=== PATIENT | female | born 1990 | race Caucasian/White ===

== ENCOUNTER 2017-03-10 22:15 | Emergency (ER) | payer OTHER ==
[~2017-03-10] VITALS: Ht 160 cm; Wt 83.0 kg
[2017-03-10 22:25] VITALS: BP 140/93; Ht 160 cm; Wt 83.0 kg
[2017-03-10 23:09] LABS: UA SPECIFIC GRAVITY <=1.005 (1.005-1.035); microscopic required? YES; urine erythrocyte 1+ (NEGATIVE)
== END 2017-03-10 23:04 | disposition home or self-care (01) ==
LOC: ED 22:15
PROVIDERS: Emergency Medicine
DX: N39.0 Urinary tract infection, site not specified (principal); R03.0 Elevated blood-pressure reading, without diagnosis of hypertension; Z88.0 Allergy status to penicillin
CPT/HCPCS: 87491; 87591

== ENCOUNTER 2017-05-21 22:19 | Emergency (ER) | payer OTHER ==
[~2017-05-21] VITALS: Ht 154.9 cm; Wt 82.1 kg
[2017-05-21 22:21] VITALS: BP 136/88; Ht 154.9 cm; Wt 82.1 kg
== END 2017-05-22 01:05 | disposition home or self-care (01) ==
LOC: ED 22:19
DX: N76.0 Acute vaginitis (principal); Z88.0 Allergy status to penicillin